=== PATIENT | female | born 1975 | race Caucasian/White ===

== ENCOUNTER 2016-07-26 11:02 | Emergency (ER) ==
[2016-07-26 11:07] VITALS: BP 167/100; TEMP 98.5; BMI 31.8
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
== END 2016-07-26 12:14 | disposition home or self-care (01) ==
LOC: ED 11:02
DX: M54.6 Pain in thoracic spine (principal); M54.5 Low back pain; R07.89 Other chest pain; R52 Pain, unspecified; V47.6XXA Car passenger injured in collision with fixed or stationary object in traffic accident, initial encounter
CPT/HCPCS: 99283